=== PATIENT | male | born 1970 | race Caucasian/White ===

== ENCOUNTER 2016-10-29 15:57 | Emergency (ER) | payer BC, MEDICAID, OTHER ==
--- NOTE | 2016-10-29 16:20 | ED Physician Chart ---
Chief Complaint/HPI - Patient Information Date Seen:: 10/29/16 Time Seen:: 16:18 Chief Complaint:: R ankle pain for one day. History of Present Illness:: Pt has had R ankle pain for one day after he accidentally twisted his R ankle while he was playing sport last evening. Pt remains ambulatory except with pain. Pain at R ankle can be worsened with wt bearing activities. No weakness or numbness. No other injury or bodily pain. Allergies:: NKA Vitals:: see Nurse Note. Historian:: Patient Family MD/PCP:: unknown LMP:: N/A Review:: Nurse's Note Reviewed Review of Systems - Review of Systems General/Constitutional: No fever, No chills, No weight loss, No weakness, No diaphoresis, Edema (in injuried area in R ankle.), No loss of appetite Skin: No skin lesions, No rash Head: No headache, No light-headedness Eyes: No loss of vision, No pain, No diplopia ENT: No earache, No nasal drainage, No sore throat, No tinnitus Neck: No neck pain, No swelling, No stiffness Cardio Vascular: No chest pain, No palpitations Pulmonary: No SOB, No cough, No sputum, No wheezing GI: No nausea, No vomiting, No diarrhea, No pain G/U: No dysuria, No frequency, No hematuria Musculoskeletal: Bone or joint pain (R ankle pain), No back pain Endocrine: No polyuria, No polydipsia Psychiatric: No prior psych history Hematopoietic: No bruising, No lymphadenopathy Allergic/Immuno: No urticaria, No angioedema Neurological: No syncope, No focal symptoms, No weakness, No paresthesia, No headache, No seizure, No dizziness, No confusion, No vertigo Past Medical History - Past Medical History Past Medical History: DM (with last Accuchek this morning 162. Pt does not want Accuchek done again here as he knows how to monitor it at home.) Family History: Heart disease (MGF) Social History: Non Smoker, Alcohol (20 beers weekly. Pt has been informed about health risks associated with chronic alcohol use and has been advised to quit. Pt has been encourage to enroll in an alcohol detox program. Pt acknowledges understanding.), No Drug Use, , Other (lives with his mother) Employment:: Student Surgical History: other (Bilateral arthroscopic surgeries in R knee in , and L knee in ) Psychiatricy History: None Medication: Reviewed Family Medical History - Family Member mother History Unknown: Yes Physical Exam - Physical Examination General/Constitutional: Awake, Well-developed, well-nourished, Alert, No distress, GCS 15, Non-toxic appearing, Ambulatory Other Gen/Cons comments:: Breathes comfortably, speaks clearly, interacts normally, and ambulates with minimal discomfort. Head: Atraumatic Eyes: Lids, conjuctiva normal, PERRL, EOMI Skin: Well hydrated, No lymphadenopathy ENMT: External ears, nose nl, Nasal exam nl, Lips, teeth, gums nl, Oropharynx nl Neck: Nontender, Full ROM w/o pain, No nuchal rigidity, No mass, No stridor Respiratory: Nl effort/Exclusion, Clear to Auscultation, No Wheeze/Rhonchi/Rales Cardio Vascular: RRR, No murmur, gallop, rubs GI: No tenderness/rebounding/guarding, No organomegaly, Normal BS's, Nondistended Other Extremities comments:: R ankle: tenderness at lateral aspect with mild to moderate edema. Mild ecchymosis. No open wound or gross deformity. ROM is not well assessed due to pain. No detectable motor/sensory/vascular deficit. Good distal pulse and capillary refill. Neuro/Psych: Alert/oriented (oriented x 3.), No focal deficits Misc: Normal back, No paraspinal tenderness Labs/Radiology/EKG Results - Radiology Results Results: R ankle X-ray (3v.): Based on my interpretation, soft tissue swelling noticed. No acute fx or subluxation. Official report is pending. ED Septic Shock - . Is Septic Shock (SBP<90, OR Lactate>4 mmol\L) present?: No Reassessment (Disposition) - Reassessment Reassessment:: 1710 Pain medication was offered earlier. Pt declined and stated that his pain is tolerable. Radiological findings have been reviewed with pt. R ankle splint was placed per nursing staff. Pt was reexamined. The splint was properly placed. No neurovascular deficit. Pt requests to go home now. Aftercare instructions have been given. His girlfriend Krystal will drive him home. Reassessment Condition:: Improved - Diagnosis Diagnosis:: R ankle sprain, stable. - Aftercare/Follow up Instructions Aftercare/Follow-Up Instructions:: Refer to Discharge Instructions Notes:: Sprain care instructions have been given. Motrin 200 mg tab 4 tabs po q8h prn pain. Wear R ankle splint as directed. Avoid wt bearing on R ankle. Use crutches. F/U Dr. DeL a Cruz or PCP of pt's choice in 2-3 days for recheck. Return to ER immediately if condition worsens or if any further questions/problems. Medication Prescribed:: None - Patient Disposition Discharge/Transfer:: Home Time:: 17:10 Condition at Disposition:: Stable, Improved ED Discharge Plan - Patient Disposition Admit/Discharge/Transfer: PT DISCHARGED HOME Condition at Disposition: Stable Instructions: Crutch Use, [id number], Ankle Sprain, [id number]
--- NOTE | 2016-10-30 08:28 | Diagnostic Imaging Report ---
Right ankle 3 views Indication: Trauma Comparison: none Findings: There is diffuse soft tissue swelling surrounding the ankle. Mild degenerative changes are seen with small spurring seen along the anterior tibial and medial malleolus region. No evidence of a fracture. No dislocation. Impression: Diffuse soft tissue swelling surrounding the ankle. No evidence of a fracture. Ligamentous injury cannot be excluded. Clinical correlation is recommended. Mild degenerative changes with small osteophytic spurs. In the setting of trauma, if clinical symptoms persist and there is continued concern for an occult fracture, follow up exams in 5-7 days is suggested.
== END 2016-10-29 17:21 | disposition home or self-care (01) ==
LOC: ER 15:57
DX: S93.401A Sprain of unspecified ligament of right ankle, initial encounter (principal); E11.9 Type 2 diabetes mellitus without complications; X58.XXXA Exposure to other specified factors, initial encounter; Y93.89 Activity, other specified; Y92.89 Other specified places as the place of occurrence of the external cause; Y99.8 Other external cause status
CPT/HCPCS: 73610-RT-TC; Z7502

== ENCOUNTER 2016-12-22 10:44 | Emergency (ER) | payer MEDICAID ==
[2016-12-22 11:25] LABS: % BASOPHILS 0.2 % (0.0-2.0); % EOSINOPHILS 1.2 % (0.0-5.0); % LYMPHOCYTES 29.2 % (20.0-50.0); % NEUTROPHILS 61.4 % (40.0-80.0); HEMOGLOBIN 16.6 gm/dL (12-16); MEAN CELL VOLUME 95.6 fl (80-99); MEAN CORPUSCULAR HEMOGLOBIN 31.8 pg (26.0-30.0); MEAN CORPUSCULAR HGB CONC 33.2 pg (28.0-36.0); MEAN PLATELET VOLUME 7.2 fl; NEUTROPHILE ABSOLUTE 5.8 Th/cmm (1.8-8.0); PLATELET COUNT 325 Th/cmm (150-400); RED BLOOD COUNT 5.23 Mil/cmm (4.30-5.70); RED CELL DISTRIBUTION WIDTH 12.8 % (11.5-20.0); WHITE BLOOD COUNT 9.3 Th/cmm (4.8-10.8)
[2016-12-22 12:01] LABS: URINE BILIRUBIN NEGATIVE (NEGATIVE); URINE BLOOD SMALL (NEGATIVE); URINE GLUCOSE (UA) NEGATIVE (NEGATIVE); URINE KETONE NEGATIVE (NEGATIVE); URINE PROTEIN NEGATIVE (NEGATIVE); URINE UROBILINOGEN 0.2 E.U./dL (0.2 - 1.0)
[2016-12-22 12:08] LABS: INR 0.98 (0.5-1.4); PROTHROMBIN TIME (TEST) 10.2 SECONDS (9.5-11.5)
[2016-12-22 12:09] LABS: URINE COLOR YELLOW
[2016-12-22 12:12] LABS: URINE BACTERIA OCCASIONAL /hpf (NONE SEEN); URINE EPITHELIAL CELLS RARE /lpf (FEW); URINE WBC 0-2 /hpf (0-5)
[2016-12-22 12:39] LABS: ALB/GLOB RATIO 0.8 (1.0-1.8); ALKALINE PHOSPHATASE 51 U/L (34-104); ANION GAP 16.4 (7.0-16.0); BILIRUBIN,TOTAL 0.6 mg/dL (0.3-1.0); BUN - UREA NITROGEN 16 mg/dL (7-25); CALCIUM SERUM 9.4 mg/dL (8.6-10.3); CHLORIDE 105 mEq/L (98-107); CREATININE - SERUM 0.8 mg/dL (0.7-1.3); GLUCOSE 74 mg/dL (70-105); POTASSIUM SERUM 4.4 mEq/L (3.5-5.1); SGOT 28 U/L (13-39); SGPT/ALT 41 U/L (7-52); SODIUM SERUM 139 mEq/L (136-145)
--- NOTE | 2016-12-22 12:40 | ED Physician Chart ---
ED Chief Complaint/HPI - Patient Information Date Seen:: 12/22/16 Time Seen:: 12:25 Chief Complaint:: hemiuria for 1 day History of Present Illness:: 46 yo male had bloody urine 3 times about 3 hours ago. He also had burning sensation. Denies back pain, sexually active with only his girlfriend who had pyelonephritis 2 weeks ago treated with antibiotics. Patient also had pink emesis due to gag reflex induced by brushing teeth 6 hours ago and patient had tomato sauce the night before. Patient also reported fresh blood tinged in stool weekly for 1 year, denies melena. Never had colonoscopy before. Patient also reported intermittent acid reflux for 5 years. Took Tums as needed. Allergies:: Allergies Allergy/AdvReac Type Severity Reaction Status Date / Time No Known Allergies Allergy Verified 10/29/16 16:21 Vitals:: Vital Signs - 8 hr 12/22/16 11:05 Temp 98.5 F HR 80 RR 14 BP 145/95 O2 Sat % 97 ED Review of Systems - Review of Systems General/Constitutional: No fever, No chills, No weight loss, No weakness, No diaphoresis, No edema, No loss of appetite Skin: No skin lesions, No rash, No bruising Head: No headache, No light-headedness Eyes: No loss of vision, No pain, No diplopia ENT: No earache, No nasal drainage, No sore throat, No tinnitus Cardio Vascular: No chest pain, No palpitations, No PND, No orthopnea, No edema Pulmonary: No SOB, No cough, No sputum, No wheezing GI: No nausea, No vomiting, No diarrhea, No pain, No melena, Hematochezia, No constipation, No hematemesis G/U: Dysuria, Hematuria Musculoskeletal: No bone or joint pain, No back pain, Other (Right ankle pain) Psychiatric: No prior psych history Hematopoietic: No bruising Neurological: No focal symptoms ED Past Medical History - Past Medical History Past Medical History: DM (metformin 500mg bid) Family History: Diabetes Melitus, Cancer (breast cancer (aunt)) Social History: Non Smoker, Alcohol (30 cans of beer on weekends), No Drug Use Surgical History: other (Left knee arthroscopy for torn ACL) Psychiatricy History: None Medication: Reviewed Family Medical History - Family Member mother History Unknown: Yes Hx Family Cancer: No Hx Family Congestive Heart Failure: No Hx Family Stroke: No Hx Family Seizures: No Hx Family AIDS: No Hx Family HIV: No Hx Family Hepatitis: No Hx Family Psychiatric Problems: No ED Physical Exam - Physical Examination General/Constitutional: Awake, Well-developed, well-nourished, Alert, No distress, GCS 15, Non-toxic appearing, Ambulatory Head: Atraumatic Eyes: Lids, conjuctiva normal, PERRL, EOMI Skin: Nl inspection, No rash, No skin lesions, No ecchymosis, Well hydrated, No lymphadenopathy ENMT: External ears, nose nl, Nasal exam nl, Lips, teeth, gums nl Neck: Nontender, Full ROM w/o pain, No JVD, No nuchal rigidity, No bruit, No mass, No stridor Respiratory: Nl effort/Exclusion, Clear to Auscultation, No Wheeze/Rhonchi/Rales Cardio Vascular: RRR, No murmur, gallop, rubs, NL S1 S2 GI: No tenderness/rebounding/guarding, No organomegaly, No hernia, Normal BS's, Nondistended, No mass/bruits, No McBurney tenderness Other GI comments:: No external hemorrhoid : No CVA tenderness Extremities: Full ROM, normal strength in all extremities, No edema, Normal digits & nails Other Extremities comments:: Right ankle tenderness Neuro/Psych: Alert/oriented, DTR's symmetric, Normal sensory exam, Normal motor strength, Judgement/insight normal, Mood normal, Normal gait, No focal deficits ED Labs/Radiology/EKG Results - Lab Results Results: Laboratory Tests 12/22/16 12/22/16 12/22/16 11:18 11:18 11:44 WBC 9.3 RBC 5.23 Hgb 16.6 Hct 50.0 MCV 95.6 MCH 31.8 H MCHC Differential 33.2 RDW 12.8 Plt Count 325 MPV 7.2 Neutrophils % 61.4 Lymphocytes % 29.2 Monocytes % 8.0 Eosinophils % 1.2 Basophils % 0.2 PT 10.2 INR 0.98 PTT (Actin FS) 25.2 L Urine Source [place] Urine Color YELLOW Urine Clarity CLEAR Urine pH 7.0 Ur Specific [place] 1.015 Urine Protein NEGATIVE Urine Glucose (UA) NEGATIVE Urine Ketones NEGATIVE Urine Blood SMALL H Urine Nitrate NEGATIVE Urine Bilirubin NEGATIVE Urine Urobilinogen 0.2 Ur Leukocyte Esterase NEGATIVE Urine RBC 2-5 H Urine WBC 0-2 Ur Epithelial Cells RARE Urine Bacteria OCCASIONAL Comments:: FOBT: negative - Radiology Results Results: Complete abdominal ultrasound: unremarkable without kidney stone ED Assessment - Assessment General Assessment: Hematuria Histry of hematochezia Histry of GERD Critical Care Time: 45 Excludes all billable procedures: Yes This condition life threatening/high prob of deterioration: No Assessment/Comments:: CBC, CMP, UA, complete abdominal u/s PPI 20mg qd x 14 days Follow up PCP to obtain a GI referral ED Septic Shock - . Is Septic Shock (SBP<90, OR Lactate>4 mmol\L) present?: No - <6hrs of presentation: Vital Signs: Vital Signs - 8 hr 12/22/16 11:05 Temp 98.5 F HR 80 RR 14 BP 145/95 O2 Sat % 97 ED Reassessment (Disposition) - Reassessment Reassessment Condition:: Improved - Aftercare/Follow up Instructions Aftercare/Follow-Up Instructions:: Counseled pt regarding lab results/diagnosis & need follow up, Refer to Discharge Instructions - Patient Disposition Discharge/Transfer:: Home ED Discharge Plan - Patient Disposition Instructions: Hematuria, Adult Additional Instructions: OVER THE COUNTER PRILOSEC 20MG DAILY FOR 2 WEEKS. FOLLOW UP WITH PRIMARY CARE PHYSICIAN , RETURN TO ER IF CONDITION WORSENS..
--- NOTE | 2016-12-22 14:10 | Diagnostic Imaging Report ---
Exam: Ultrasound summation abdomen HISTORY: Hematuria Real-time ultrasound examination of the abdomen performed multiple planes. The study demonstrates normal echogenicity liver parenchyma. The gallbladder free of calculi. The common bile duct measures 4 mm. Thank you is poorly seen. The right kidney measures 10.9 x 6.2 x 7 cm diameter. Left kidney measures 11.6 x 6.2 x 5 cm diameter. There is no evidence of obstructive uropathy or nephrolithiasis. The spleen is intact no free fluid is noted. IMPRESSION: Unremarkable examination the abdomen, the study somewhat limited due to large amount of intra-abdominal bowel gas.
== END 2016-12-22 14:45 | disposition home or self-care (01) ==
LOC: ER 10:44
DX: R31.9 Hematuria, unspecified (principal); E11.9 Type 2 diabetes mellitus without complications
CPT/HCPCS: 36415-UA; 76700-TC; 80053-TC; 81001-TC; 82270-TC; 85025-TC; 85610-TC; Z7502

== ENCOUNTER 2017-09-02 07:28 | Emergency (ER) | payer MEDICAID ==
[2017-09-02] MEDS ORDERED: Sodium Chloride 0.9% 1,000 ML IV ONE (08:01)
--- NOTE | 2017-09-02 08:05 | ED Physician Chart ---
ED Chief Complaint/HPI - Patient Information Date Seen:: 09/02/17 Time Seen:: 07:59 Chief Complaint:: fever chills sore throat History of Present Illness:: 47 yr old male with sore throat fever chills for few days has hx of diabetes and taking otc meds Allergies:: Allergies Allergy/AdvReac Type Severity Reaction Status Date / Time No Known Allergies Allergy Verified 10/29/16 16:21 Vitals:: Vital Signs - 8 hr 09/02/17 07:37 Temp 98.4 F HR 116 RR 21 BP 150/84 O2 Sat % 97 Historian:: Patient, Family Member ED Review of Systems - Review of Systems General/Constitutional: Fever, Chills, Weakness Skin: No skin lesions, No rash, No bruising Head: No headache, No light-headedness Eyes: No loss of vision, No pain, No diplopia ENT: Earache, Sore throat Neck: No neck pain, No swelling, No thyromegaly, No stiffness, No mass noted Cardio Vascular: No chest pain, No palpitations, No PND, No orthopnea, No edema Pulmonary: No SOB, No cough, No sputum, No wheezing GI: No nausea, No vomiting, No diarrhea, No pain, No melena, No hematochezia, No constipation, No hematemesis G/U: No dysuria, No frequency, No hematuria Musculoskeletal: No bone or joint pain, No back pain, No muscle pain Endocrine: No polyuria, No polydipsia Psychiatric: No prior psych history, No depression, No anxiety, No suicidal ideation Hematopoietic: No bruising, No lymphadenopathy Allergic/Immuno: No urticaria, No angioedema Neurological: No syncope, No focal symptoms, No weakness, No paresthesia, No headache, No seizure, No dizziness, No confusion, No vertigo ED Past Medical History - Past Medical History Past Medical History: DM Family Medical History - Family Member mother History Unknown: Yes Hx Family Cancer: No Hx Family Congestive Heart Failure: No Hx Family Stroke: No Hx Family Seizures: No Hx Family AIDS: No Hx Family HIV: No Hx Family Hepatitis: No Hx Family Psychiatric Problems: No ED Physical Exam - Physical Examination General/Constitutional: Awake, Well-developed, well-nourished, Alert, GCS 15, Ambulatory Head: Atraumatic Eyes: Lids, conjuctiva normal, PERRL, EOMI Skin: Nl inspection, No rash, No skin lesions, No ecchymosis, Well hydrated, No lymphadenopathy ENMT: External ears, nose nl, Nasal exam nl, Lips, teeth, gums nl Neck: Nontender, Full ROM w/o pain, No JVD, No nuchal rigidity, No bruit, No mass, No stridor Respiratory: Nl effort/Exclusion, Clear to Auscultation, No Wheeze/Rhonchi/Rales Cardio Vascular: RRR, No murmur, gallop, rubs, NL S1 S2 GI: No tenderness/rebounding/guarding, No organomegaly, No hernia, Normal BS's, Nondistended, No mass/bruits, No McBurney tenderness : No CVA tenderness Extremities: No tenderness or effusion, Full ROM, normal strength in all extremities, No edema, Normal digits & nails Neuro/Psych: Alert/oriented, DTR's symmetric, Normal sensory exam, Normal motor strength, Judgement/insight normal, Mood normal, Normal gait, No focal deficits Misc: Normal back, No paraspinal tenderness ED Assessment - Assessment General Assessment: diabetic sugar 114 sore throat fever chills here afebrile ED Septic Shock - . Is Septic Shock (SBP<90, OR Lactate>4 mmol\L) present?: No - <6hrs of presentation: Vital Signs: Vital Signs - 8 hr //18 07:37 Temp 98.4 F HR 116 RR 21 BP 150/84 O2 Sat % 97 ED Reassessment (Disposition) - Reassessment Reassessment Condition:: Improved - Diagnosis Diagnosis:: pharyngitis - Patient Disposition Discharge/Transfer:: Home (IV FLUIDS [facility] LABS CULTURES DONE)
[2017-09-02] MEDS ORDERED: Piperacillin Sodium/Tazobact 3.375 gm Vial IV ONE (08:06)
[2017-09-02 08:46] LABS: HEMATOCRIT 46.7 % (41.0-60); HEMOGLOBIN 15.8 gm/dL (12-16); MANUAL DIFF REQUIRED? YES; MEAN CELL VOLUME 92.6 fl (80-99); MEAN CORPUSCULAR HEMOGLOBIN 31.4 pg (26.0-30.0); MEAN CORPUSCULAR HGB CONC 33.9 pg (28.0-36.0); MEAN PLATELET VOLUME 7.9 fl; PLATELET COUNT 484 Th/cmm (150-400); RED BLOOD COUNT 5.05 Mil/cmm (4.30-5.70); RED CELL DISTRIBUTION WIDTH 12.8 % (11.5-20.0)
[2017-09-02 08:48] LABS: ALBUMIN 3.5 gm/dL (4.2-5.5); ALKALINE PHOSPHATASE 69 U/L (34-104); ANION GAP 11.6 (7.0-16.0); BILIRUBIN,TOTAL 0.3 mg/dL (0.3-1.0); BUN - UREA NITROGEN 8 mg/dL (7-25); CALCIUM SERUM 9.3 mg/dL (8.6-10.3); CARBON DIOXIDE 24.8 mEq/L (21.0-31.0); CHLORIDE 101 mEq/L (98-107); CREATININE - SERUM 0.7 mg/dL (0.7-1.3); GFR AFRICAN-AMERICAN > 60.0 ml/min (>90); GFR NON AFRICAN-AMERICAN > 60.0 ml/min; GLUCOSE 109 mg/dL (70-105); POTASSIUM SERUM 3.4 mEq/L (3.5-5.1); SGOT 22 U/L (13-39); SGPT/ALT 36 U/L (7-52); SODIUM SERUM 134 mEq/L (136-145); TOTAL PROTEIN,SERUM 7.2 gm/dL (6.0-8.3)
[2017-09-02 08:51] LABS: WHITE BLOOD COUNT 20.4 Th/cmm (4.8-10.8)
[2017-09-02 08:53] LABS: URINE MICROSCOPIC INDICATED? YES; URINE SOURCE CLEAN C
[2017-09-02 09:00] LABS: URINE BILIRUBIN NEGATIVE (NEGATIVE); URINE BLOOD TRACE (NEGATIVE); URINE GLUCOSE (UA) NEGATIVE (NEGATIVE); URINE KETONE NEGATIVE (NEGATIVE); URINE LEUKOCYTE ESTERASE NEGATIVE (NEGATIVE); URINE NITRATE NEGATIVE (NEGATIVE); URINE PH 6.5 (4.6 - 8.0); URINE PROTEIN NEGATIVE (NEGATIVE); URINE UROBILINOGEN 0.2 E.U./dL (0.2 - 1.0)
[2017-09-02 09:01] LABS: URINE CLARITY CLEAR (CLEAR); URINE COLOR YELLOW
[2017-09-02 09:09] LABS: URINE BACTERIA NONE SEEN /hpf (NONE SEEN); URINE EPITHELIAL CELLS OCCASIONAL /lpf (FEW); URINE RBC 0-2 /hpf (0-5); URINE WBC 0-2 /hpf (0-5)
[2017-09-02 09:12] LABS: BAND NEUTROPHILE 4 % (0-10); BASOPHIL 0 % (0-3); EOSINOPHIL 0 % (0-5); LYMPHOCYTE 14 % (20-50); MONOCYTE 8 % (2-10); NEUTROPHILS 74 % (40-80); TOTAL CELLS COUNTED 100
--- NOTE | 2017-09-02 10:32 | Diagnostic Imaging Report ---
Portable chest x-ray HISTORY: Shortness of breath The heart is enlarged. No focal pulmonary processes. No hilar or mediastinal abnormalities. IMPRESSION: 1. Cardiomegaly 2. No acute focal pulmonary processes
== END 2017-09-02 10:27 | disposition home or self-care (01) ==
LOC: ER 07:28
DX: J02.9 Acute pharyngitis, unspecified (principal); R53.1 Weakness; H92.09 Otalgia, unspecified ear; E11.9 Type 2 diabetes mellitus without complications
CPT/HCPCS: 99285; 96365; 93005; 71045; 36415; 36416; 82948; 83605; 85007; 85027; 85025; 81001; 80053; 87040 ×2; J2543; J7030

== ENCOUNTER 2018-04-30 17:09 | Emergency (ER) | payer BC, MEDICAID ==
[2018-04-30 19:55] LABS: URINE SOURCE MIDSTREAM
[2018-04-30 20:03] LABS: URINE BILIRUBIN NEGATIVE (NEGATIVE); URINE BLOOD SMALL (NEGATIVE); URINE GLUCOSE (UA) NEGATIVE (NEGATIVE); URINE KETONE NEGATIVE (NEGATIVE); URINE LEUKOCYTE ESTERASE NEGATIVE (NEGATIVE); URINE MICROSCOPIC INDICATED? YES; URINE NITRATE NEGATIVE (NEGATIVE); URINE PROTEIN NEGATIVE (NEGATIVE); URINE UROBILINOGEN 0.2 E.U./dL (0.2 - 1.0)
[2018-04-30 20:21] LABS: URINE CLARITY CLEAR (CLEAR); URINE COLOR STRAW
[2018-04-30 20:23] LABS: URINE RBC 0-2 /hpf (0-5)
[2018-04-30 20:24] LABS: URINE BACTERIA NONE SEEN /hpf (NONE SEEN); URINE EPITHELIAL CELLS RARE /lpf (FEW); URINE WBC NONE SEEN /hpf (0-5)
--- NOTE | 2018-05-01 11:25 | ED Physician Chart ---
ED Chief Complaint/HPI - Patient Information Date Seen:: 04/30/18 Time Seen:: 19:35 Chief Complaint:: Left low back pain History of Present Illness:: 47 yo male ambulated to ER for evaluation of left low back pain for 2 days. Pt denied any pain radiation to the legs. Pt denied any recent trauma or injury. Allergies:: Allergies Allergy/AdvReac Type Severity Reaction Status Date / Time No Known Allergies Allergy Verified 10/29/16 16:21 ED Review of Systems - Review of Systems General/Constitutional: No fever Skin: No rash Head: No headache Eyes: No pain ENT: No nasal drainage Neck: No neck pain Cardio Vascular: No chest pain Pulmonary: No SOB GI: No nausea, No vomiting Musculoskeletal: Back pain Psychiatric: No prior psych history Neurological: No focal symptoms ED Past Medical History - Past Medical History Past Medical History: DM, Other (Obesity) Social History: Non Smoker, Alcohol, No Drug Use Family Medical History - Family Member mother History Unknown: Yes Hx Family Cancer: No Hx Family Congestive Heart Failure: No Hx Family Stroke: No Hx Family Seizures: No Hx Family AIDS: No Hx Family HIV: No Hx Family Hepatitis: No Hx Family Psychiatric Problems: No ED Physical Exam - Physical Examination General/Constitutional: Awake, Alert Head: Atraumatic Eyes: PERRL Skin: No skin lesions ENMT: Nasal exam nl Neck: No nuchal rigidity Respiratory: Clear to Auscultation Cardio Vascular: RRR, No murmur, gallop, rubs, NL S1 S2 GI: No tenderness/rebounding/guarding Other Extremities comments:: Left lumbar paraspinal tender muscle mass with spasm Neuro/Psych: No focal deficits ED Labs/Radiology/EKG Results - Lab Results Results: Laboratory Tests 04/30/18 19:53 Urine Source [place] Urine Color STRAW Urine Clarity CLEAR Urine pH 6.0 Ur Specific [place] 1.020 Urine Protein NEGATIVE Urine Glucose (UA) NEGATIVE Urine Ketones NEGATIVE Urine Blood SMALL H Urine Nitrate NEGATIVE Urine Bilirubin NEGATIVE Urine Urobilinogen 0.2 Ur Leukocyte Esterase NEGATIVE Urine RBC 0-2 H Urine WBC NONE SEEN Ur Epithelial Cells RARE Urine Bacteria NONE SEEN ED Assessment - Assessment General Assessment: Low back pain Hematuria Assessment/Comments:: Toradol 60mg IM ED Septic Shock - . Is Septic Shock (SBP<90, OR Lactate>4 mmol\L) present?: No ED Reassessment (Disposition) - Reassessment Reassessment:: Pt's left low back pain significantly improved. Pt did not want to wait for the UA result and left. Reassessment Condition:: Improved - Aftercare/Follow up Instructions Notes:: F/u PCP for hematuria work up - Patient Disposition Discharge/Transfer:: Home
== END 2018-04-30 20:28 | disposition home or self-care (01) ==
LOC: ER 17:09
DX: M54.5 Low back pain (principal); R31.9 Hematuria, unspecified; E11.9 Type 2 diabetes mellitus without complications
CPT/HCPCS: 99283; 96372; 81001; J1885; Z7502

== ENCOUNTER 2018-09-24 08:39 | Emergency (ER) | payer BC ==
--- NOTE | 2018-09-24 10:31 | Diagnostic Imaging Report ---
Left elbow 3 views Indication: Trauma Comparison: none Findings: No evidence of an acute fracture or dislocation. No significant focal soft tissue swelling. Mild degenerative changes are noted. Impression: No evidence of an acute fracture. Mild degenerative changes. In the setting of trauma, if clinical symptoms persist and there is continued concern for an occult fracture, follow up exams in 5-7 days is suggested.
--- NOTE | 2018-09-24 13:40 | ED Physician Chart ---
ED Chief Complaint/HPI - Patient Information Date Seen:: 09/24/18 Time Seen:: 08:45 Chief Complaint:: Left Elbow Pain History of Present Illness:: onset x 18 hours of intermittent, dull, MS type left elbow pain after an accidental contact injury 18 hours [employer]; pt denies LOC, ALOC, AMS, H/As, neck pain, C/P, SOB, Abd. Pain, visual or gait changes, weakness, dizziness, paresthesias, vertigo, A/N/V/D/C, fever, chills, bleeding, or urinary s/s; pt's last tetanus shot: < 5 years; UTD; pt denies any other trauma; pt's last tetanus shot: < 5 years; UTD Allergies:: Allergies Allergy/AdvReac Type Severity Reaction Status Date / Time No Known Allergies Allergy Verified 09/24/18 08:48 Vitals:: Vital Signs - 8 hr 09/24/18 09/24/18 08:48 09:27 HR 94 90 RR 18 16 BP 155/99 150/96 O2 Sat % 94 98 Historian:: Patient Review:: Nurse's Note Reviewed, Old Chart Reviewed ED Review of Systems - Review of Systems General/Constitutional: No fever, No chills, No weight loss, No weakness, No diaphoresis, No edema, No loss of appetite Skin: No skin lesions, No rash, No bruising Head: No headache, No light-headedness Eyes: No loss of vision, No pain, No diplopia ENT: No earache, No nasal drainage, No sore throat, No tinnitus Neck: No neck pain, No swelling, No thyromegaly, No stiffness, No mass noted Cardio Vascular: No chest pain, No palpitations, No PND, No orthopnea, No edema Pulmonary: No SOB, No cough, No sputum, No wheezing GI: No nausea, No vomiting, No diarrhea, No pain, No melena, No hematochezia, No constipation, No hematemesis G/U: No dysuria, No frequency, No hematuria, No nacturia Musculoskeletal: No bone or joint pain, No back pain, No muscle pain Endocrine: No polyuria, No polydipsia Psychiatric: No prior psych history, No depression, No anxiety, No suicidal ideation, No homicidal ideation, No auditory hallucination, No visual hallucination Hematopoietic: No bruising, No lymphadenopathy Allergic/Immuno: No urticaria, No angioedema Neurological: No syncope, No focal symptoms, No weakness, No paresthesia, No headache, No seizure, No dizziness, No confusion, No vertigo ED Past Medical History - Past Medical History Obtainable: Yes Past Medical History: HTN Family History: HTN Social History: Non Smoker, No Alcohol, No Drug Use, Surgical History: None Psychiatricy History: None Medication: Reviewed Family Medical History - Family Member mother History Unknown: Yes Hx Family Cancer: No Hx Family Congestive Heart Failure: No Hx Family Stroke: No Hx Family Seizures: No Hx Family AIDS: No Hx Family HIV: No Hx Family Hepatitis: No Hx Family Psychiatric Problems: No ED Physical Exam - Physical Examination General/Constitutional: Awake, Well-developed, well-nourished, Alert, No distress, GCS 15, Non-toxic appearing, Ambulatory Head: Atraumatic Eyes: Lids, conjuctiva normal, PERRL, EOMI Skin: Nl inspection, No rash, No skin lesions, No ecchymosis, Well hydrated, No lymphadenopathy ENMT: External ears, nose nl, TM canals nl, Nasal exam nl, Lips, teeth, gums nl , Oropharynx nl, Tonsils nl Neck: Nontender, Full ROM w/o pain, No JVD, No nuchal rigidity, No bruit, No mass, No stridor Other Neck comments:: supple; no meningeal signs; no cervical tenderness; no bruits Respiratory: Nl effort/Exclusion, Clear to Auscultation, No Wheeze/Rhonchi/Rales Cardio Vascular: RRR, No murmur, gallop, rubs, NL S1 S2, Carotid/Femoral/Distal pulses equal bilaterally GI: No tenderness/rebounding/guarding, No organomegaly, No hernia, Normal BS's, Nondistended, No mass/bruits, No McBurney tenderness, Rectum exam nl Other GI comments:: no pulsatile masses : No CVA tenderness Extremities: No tenderness or effusion, Full ROM, normal strength in all extremities, No edema, Normal digits & nails Other Extremities comments:: + Left Elbow Tenderness upon all PROMs; no loss of ROMs; full active ROMs of all joints; no septic joints; no cellulitis; no ligament instability; no FBs; good motor, tendon, and sensory functions; good NV functions Neuro/Psych: Alert/oriented, DTR's symmetric, Normal sensory exam, Normal motor strength, Judgement/insight normal, Mood normal, Normal gait, No focal deficits Other Neuro/Psych comments:: no focal signs Misc: Normal back, No paraspinal tenderness ED Labs/Radiology/EKG Results - Radiology Results Comments:: X-Rays: ? radial head fracture; + Posterior Fat pad Sign;no obvious Fractures; no Dislocations ED Septic Shock - . Is Septic Shock (SBP<90, OR Lactate>4 mmol\L) present?: No - <6hrs of presentation: Vital Signs: Vital Signs - 8 hr 09/24/18 09/24/18 08:48 09:27 HR 94 90 RR 18 16 BP 155/99 150/96 O2 Sat % 94 98 ED Reassessment (Disposition) - Reassessment Reassessment:: Final BP: 142/88; pt is asymptomatic upon discharge Reassessment Condition:: Improved - Diagnosis Diagnosis:: Left Elbow Injury; Left Elbow Pain; Left Radial Head Fracture; Left Elbow Sprains and Strains; Hypertension - Aftercare/Follow up Instructions Aftercare/Follow-Up Instructions:: Counseled pt regarding lab results/diagnosis & need follow up, Refer to Discharge Instructions, Counseled pt & family regarding lab results/diagnosis & need follow up - Patient Disposition Discharge/Transfer:: Home Condition at Disposition:: Stable, Improved (X-Rays Instructions; RTER prn if existing s/s reoccur and/or get worse and/or any other new s/s occur; Have Blood Pressure re-checked in one day by PMD; ACIs given for all above Dx; Refer to Orthopedist/Finding [facility]ener [facility]; F/U with PMD in one day or prn; RTER prn if concerned)
== END 2018-09-24 09:30 | disposition home or self-care (01) ==
LOC: ER 08:39
DX: S52.122A Displaced fracture of head of left radius, initial encounter for closed fracture (principal); S53.402A Unspecified sprain of left elbow, initial encounter; S56.912A Strain of unspecified muscles, fascia and tendons at forearm level, left arm, initial encounter; I10 Essential (primary) hypertension; X58.XXXA Exposure to other specified factors, initial encounter; Y93.89 Activity, other specified; Y92.89 Other specified places as the place of occurrence of the external cause; Y99.8 Other external cause status
CPT/HCPCS: 73080-TC-LT; Z7502